=== PATIENT | female | born 1955 | race Caucasian/White ===

== ENCOUNTER → 2016-04-08 | Outpatient (CLI) | payer OTHER ==
--- NOTE | 2016-04-09 10:35 | ECHOF ---
Referral Reason:I25.10 CVD MEASUREMENTS -------- HEIGHT: 152.4 cm WEIGHT: 57.1 kg BP: IVSd: 1.0 cm (0.6 - 1.1) LVIDd: 4.3 cm (3.9 - 5.3) LVPWd: 1.3 cm (0.6 - 1.1) IVSs: 1.4 cm LVIDs: 3.0 cm LVPWs: 1.4 cm LA Diam: 2.9 cm (2.7 - 3.8) LAESV Index (A-L): 34.98 ml/m Ao Diam: 2.7 cm (2.0 - 3.7) AV Cusp: 1.6 cm (1.5 - 2.6) LA Diam: 3.8 cm (2.7 - 3.8) MV EXCURSION: 23.384 mm (> 18.000) MV EF SLOPE: 83 mm/s (70 - 150) EPSS: 0.3 cm MV E Enrique: 0.91 m/s MV DecT: 271 ms MV A Enrique: 0.84 m/s MV E/A Ratio: 1.08 RAP: 5.00 mmHg RVSP: 23.88 mmHg FINDINGS -------- Sinus rhythm. This was a technically adequate study. There is borderline concentric left ventricular hypertrophy. Overall left ventricular systolic function is low-normal with, an EF between 50 - 55 %. The right ventricle is normal in size. LA is moderately dilated 34-39 ml/m2 The right atrial size is normal. There is mild aortic valve sclerosis. There is no evidence of aortic regurgitation. Mild mitral annular calcification present. Mild mitral regurgitation is present. Mild tricuspid regurgitation present. The right ventricular systolic pressure, as measured by Doppler, is 23.88mmHg. There is no pulmonic regurgitation present. The aortic root size is normal. There is no pericardial effusion. CONCLUSIONS -------- 1. There is borderline concentric left ventricular hypertrophy. 2. Overall left ventricular systolic function is low-normal with, an EF between 50 - 55 %. 3. LA is moderately dilated 34-39 ml/m2 4. There is mild aortic valve sclerosis. 5. Mild mitral annular calcification present. 6. Mild mitral regurgitation is present. 7. Mild tricuspid regurgitation present. 8. The right ventricular systolic pressure, as measured by Doppler, is 23.88mmHg. 9. There is no pericardial effusion. ETL DATABASE DEVELOPER: Sabrina Erickson RDCS
== END | disposition home or self-care (01) ==
LOC: RADECHMAIN 14:43
PROVIDERS: ATTEND Family Medicine
DX: I34.0 Nonrheumatic mitral (valve) insufficiency (principal); I07.1 Rheumatic tricuspid insufficiency; I35.8 Other nonrheumatic aortic valve disorders
CPT/HCPCS: 93306

== ENCOUNTER → 2017-02-18 | Outpatient (CLI) | payer OTHER ==
--- NOTE | 2017-02-18 20:02 | MR ---
EXAMINATION TYPE: MR angio head wo con DATE OF EXAM: 02/18/2017 COMPARISON: CT brain dated 02/01/2017 HISTORY: Dizziness, hx head trauma x 4 mos ago, abn CT TECHNIQUE: [id number] imaging was utilized per MRA brain protocol. 3-D imaging of the vasculature was create d for interpretation. FINDINGS: The right vertebral artery is dominant. There is no evidence of intracranial focal stenosis or dissection. The right posterior communicating artery is diminutive although the clark's point of [place] is intact. There is no evidence of intracranial aneurysm. No developmental venous anomaly or arterial venous malformation are identified. Evaluation of the brain parenchyma is suboptimal given technique . No gross evidence of hydrocephalus. IMPRESSION: No evidence of intracranial aneurysm, significant stenosis, occlusion, or dissection of t he intracranial vasculature.
== END | disposition home or self-care (01) ==
LOC: RADMRIMAIN 15:55
PROVIDERS: ATTEND Family Medicine
DX: R94.02 Abnormal brain scan (principal)
CPT/HCPCS: 70544

== ENCOUNTER 2017-08-15 19:28 | Observation (INO) | payer OTHER ==
[2017-08-15] MEDS ORDERED: ASPIRIN 81 MG PO STA (20:03)
[2017-08-15] MEDS ORDERED: NITROGLYCERIN SL TABS 0.4 MG TAB SUBLINGUAL PRN (20:06)
--- NOTE | 2017-08-15 20:11 | ED ---
Chest Pain HPI - General Chief Complaint: Chest Pain Stated Complaint: Chest Pain Time Seen by Provider: 08/15/17 19:41 Source: patient, family Mode of arrival: wheelchair Limitations: no limitations - History of Present Illness Initial Comments: Patient is a 61-year-old female who presents with a chief complaint of sharp and pressure-like substernal chest pain. The patient states that this started a few hours ago. Onset was while she was resting. The patient cannot identify an inciting incident. There are no particular aggravating or alleviating factors. Timing is constant. She admits to shortness of breath, and lightheadedness. Patient has a history of stroke with residual left-sided weakness. Patient has hypertension, she smokes almost one pack per day, and she has a family history of CT. - Related Data Home Medications Medication Instructions Recorded Confirmed ALPRAZolam [Xanax] 0.5 mg PO BID PRN 08/15/17 08/15/17 Atenolol [Tenormin] 25 mg PO BID 08/15/17 08/15/17 Methylphenidate HCl [Ritalin] 20 mg PO TID 08/15/17 08/15/17 Pregabalin [Lyrica] 50 mg PO DAILY 08/15/17 08/15/17 Warfarin Sodium [Coumadin] 5 mg PO DAILY 08/15/17 08/15/17 oxyCODONE-APAP 7.5-325MG [Percocet 1 tab PO TID PRN 08/15/17 08/15/17 7.5-325 mg] Allergies Allergy/AdvReac Type Severity Reaction Status Date / Time No Known Allergies Allergy Verified 08/15/17 20:06 Review of Systems ROS Statement: Those systems with pertinent positive or pertinent negative responses have been documented in the HPI. ROS Other: All systems not noted in ROS Statement are negative. Respiratory: Reports: dyspnea Cardiovascular: Reports: chest pain Past Medical History Past Medical History: CVA/TIA, Hypertension Additional Past Medical History / Comment(s): chronic back pain, skin cancer History of Any Multi-Drug Resistant Organisms: None Reported Past Surgical History: Heart Catheterization With Stent, Pacemaker Additional Past Surgical History / Comment(s): cardiac stent, skin cancer removal Past Psychological History: No Psychological Hx Reported Smoking Status: Current every day smoker Past Alcohol Use History: Occasional Past Drug Use History: Marijuana General Exam Limitations: no limitations General appearance: alert, in no apparent distress Head exam: Present: atraumatic, normocephalic Eye exam: Present: normal appearance ENT exam: Present: normal exam Neck exam: Present: normal inspection Respiratory exam: Present: wheezes, decreased breath sounds. Absent: respiratory distress Cardiovascular Exam: Present: regular rate, normal rhythm GI/Abdominal exam: Present: soft. Absent: distended, tenderness Rectal exam: Present: deferred Extremities exam: Present: normal inspection Back exam: Present: normal inspection Neurological exam: Present: alert, oriented X3 Psychiatric exam: Present: normal affect, normal mood Skin exam: Present: warm, dry, intact Course Vital Signs 08/15/17 08/15/17 19:34 19:55 Temperature 97.6 F Pulse Rate 75 Pulse Rate [ 68 Cardiac Cath Tech ] Respiratory 20 Rate Blood Pressure 158/109 O2 Sat by Pulse 98 Oximetry Chest Pain MDM - MDM The results with chief complaint of chest pain. On initial evaluation, she is hypertensive, otherwise vital signs are stable. Patient is in mild distress secondary to pain. EKG performed at 1942 shows normal sinus rhythm with a rate of 66 bpm. EKG is otherwise unremarkable. Patient given nitroglycerin for pain. She has a history of emphysema, she continues to smoke, lung Evaluation shows decreased breath sounds and mild wheezes. Patient will be given breathing treatments in the emergency department. Prior to troponins, patient is a heart score of 4. patient will be admitted for further cardiac evaluation. 9:46 PM Laboratory evaluation is unremarkable. INR is therapeutic on Coumadin. On reevaluation, patient still states she has chest pain. She was given one nitroglycerin, his will be repeated 2 more times, if patient still having pain she will be given [place]. Vitals remained stable. I discussed this case Dr. Rendon who accepts admission for further cardiac evaluation. Patient agreeable with plan. Disposition Clinical Impression: Chest pain, Moderate risk chest pain Disposition: ADMITTED IP TO THIS [facility] Condition: Good Is patient prescribed a controlled substance at d/c from ED?: No Referrals: Edilberto Rendon MD [Primary Care Provider] - 1-2 days Decision to Admit Reason: Admit from EC - Out of Hospital Transfer - Req. Specs Out of Hospital Transfer - Requested Specifics: Telemetry Unit
[2017-08-15 21:01] LABS: Basophils # (A) 0.1 k/uL (0-0.2); Basophils % (A) 1 %; Eosinophils # (A) 0.5 k/uL (0-0.7); Eosinophils % (A) 5 %; HCT 43.8 % (34.0-46.0); HGB 14.2 gm/dL (11.4-16.0); Lymphocytes # (A) 2.1 k/uL (1.0-4.8); Lymphocytes % (A) 22 %; MCH 28.2 pg (25.0-35.0); MCHC 32.3 g/dL (31.0-37.0); MCV 87.4 fL (80.0-100.0); Mean Platelet Volume 6.9; Monocytes # (A) 0.6 k/uL (0-1.0); Monocytes % (A) 6 %; Neutrophils # (A) 6.1 k/uL (1.3-7.7); Neutrophils % (A) 64 %; Platelet Count 359 k/uL (150-450); RBC 5.01 m/uL (3.80-5.40); RDW 14.1 % (11.5-15.5); WBC 9.6 k/uL (3.8-10.6)
[2017-08-15 21:14] LABS: Anion Gap 8 mmol/L; Blood Urea Nitrogen 27 mg/dL (7-17); Calcium 10.2 mg/dL (8.4-10.2); Carbon Dioxide 29 mmol/L (22-30); Chloride 104 mmol/L (98-107); Glucose 96 mg/dL (74-99); Potassium 5.1 mmol/L (3.5-5.1); Sodium 141 mmol/L (137-145)
[2017-08-15 21:26] LABS: Prothrombin Time 18.2 sec (9.0-12.0)
[2017-08-15] MEDS ORDERED: HYDROcodone/APAP 5-325MG 1 EACH TAB PO PRN (21:43)
[2017-08-15] MEDS ORDERED: NALOXONE 0.4 MG/ML 1 ML VIAL IV PRN (21:43)
[2017-08-15] MEDS ORDERED: ALPRAZolam 0.5 MG TAB PO PRN (21:45)
[2017-08-16 04:51] LABS: Basophils # (A) 0.1 k/uL (0-0.2); Basophils % (A) 1 %; Eosinophils # (A) 0.5 k/uL (0-0.7); Eosinophils % (A) 6 %; HGB 13.1 gm/dL (11.4-16.0); Lymphocytes # (A) 2.5 k/uL (1.0-4.8); Lymphocytes % (A) 27 %; MCH 28.8 pg (25.0-35.0); MCHC 32.7 g/dL (31.0-37.0); MCV 87.9 fL (80.0-100.0); Monocytes # (A) 0.6 k/uL (0-1.0); Monocytes % (A) 7 %; Neutrophils # (A) 5.3 k/uL (1.3-7.7); Neutrophils % (A) 58 %; Platelet Count 299 k/uL (150-450); RBC 4.55 m/uL (3.80-5.40); RDW 14.2 % (11.5-15.5); WBC 9.2 k/uL (3.8-10.6)
[2017-08-16 05:05] LABS: Calcium 9.3 mg/dL (8.4-10.2); Magnesium 1.9 mg/dL (1.6-2.3); Potassium 4.4 mmol/L (3.5-5.1)
[2017-08-16] MEDS ORDERED: ATENOLOL 25 MG TAB PO SCH (09:00)
[2017-08-16] MEDS ORDERED: PREGABALIN 50 MG CAP PO SCH (09:00)
--- NOTE | 2017-08-16 09:16 | HP ---
HISTORY AND PHYSICAL CHIEF COMPLAINT: A 61-year-old white female with a prior history of hypertension, CVA, COPD, developed some anxiety and substernal chest pain, started a few hours ago with no inciting incident. No aggravating or relieving factors. She admits to shortness of breath and lightheadedness. She has a stroke with left-sided weakness, hypertension, pack per day smoking. HOME MEDICATIONS: 1. Tenormin 25 b.i.d. 2. Ritalin 20 t.i.d. 3. Xanax 0.5 b.i.d. 4. Lyrica 50 daily. 5. Coumadin 5 mg daily. 6. Percocet 7.5 t.i.d. REVIEW OF SYSTEMS: Fourteen-point review of systems negative except for mentioned in HPI except for severe anxiety. ALLERGIES: Negative. PAST MEDICAL HISTORY: CVA, TIA, hypertension, chronic back pain, skin cancer. She has heart catheterization with stent and pacemaker. Current everyday smoker. Occasional marijuana. Severe anxiety. PHYSICAL EXAMINATION: A thin, cachectic white female, very anxious. HEAD: Normocephalic, atraumatic. OPHTHALMOLOGIC: Pupils equal, round, react to light and accommodation. NEUROLOGIC: Alert and oriented x3. PSYCH: Fair mood and affect. LUNGS: Show wheezes, decreased breath sounds. GI: Soft, nontender. EXTREMITIES: No cyanosis, clubbing, edema. NEUROLOGIC: Alert and oriented x3. SKIN: Warm, dry, intact. VITAL SIGNS: Blood pressure 158/109, temp 97.6, pulse 60x to 70s, O2 of 98% on room air. EKG sinus rhythm. ASSESSMENT: Chest pain, moderate risk. Will make sure there is a D-dimer done to rule out pulmonary embolism. She is already on Coumadin anyway. Await cardiology recommendations for possible discharge or stress test. Please see further orders. MMODL / IJN: [id number] /
--- NOTE | 2017-08-16 13:51 | XR ---
EXAMINATION TYPE: XR chest 2V DATE OF EXAM: 08/16/2017 COMPARISON: Chest x-ray and CTA chest January 09, 2016. HISTORY: History of emphysema with chest pain. TECHNIQUE: Frontal and lateral views of the chest are obtained. FINDINGS: There is chronic emphysematous change without suspicious new focal air space opacity, pleu ral effusion, or pneumothorax seen. There is patchy left basilar atelectasis. The cardiac silhouette size remains enlarged. The osseous structures are demineralized. IMPRESSION: Chronic emphysematous change and cardiomegaly with new patchy left basilar atelectasis.
--- NOTE | 2017-08-16 13:58 | P.CRDCN ---
History of Present Illness History of present illness: Mrs. Mosher is a pleasant 61-year-old female past medical history significant for CVA, hypertension, COPD and chronic nicotine dependence. She denies history of coronary artery disease and has never seen a c4 planner for any reason. We have been asked to see her in consultation for chest pain. She states the pain is a pressure sensation in the left anterior chest wall in the mid-sternal and precordial region. This started yesterday when she woke up with no specific aggravating factor. She describes associated shortness of breath. She denies dizziness, palpitations, nausea, vomiting or diaphoresis. She continues to feel the discomfort with no alleviating factors. EKG reveals sinus mechanism with no acute ST or T-wave abnormalities. Laboratory data reviewed, hemoglobin 13.1, platelets 299, INR 2.0, d-dimer 0.27 , sodium 144, potassium 4.4, magnesium 1.9, cardiac enzymes negative 3, proBNP 73. Current cardiac medications include Coumadin 5 mg daily and atenolol 25 mg twice a day. She states she takes coumadin since having a stroke. Most recent echocardiogram reveals preserved LV systolic function with EF 50-55% . Review of Systems At the time of my exam: CONSTITUTIONAL: Denies fever. Denies chills. EYES: Denies blurred vision. Denies vision changes. Denies eye pain. EARS, NOSE, MOUTH & THROAT: Denies headache. Denies sore throat. Denies ear pain. CARDIOVASCULAR: Complains of chest pain. Denies shortness of breath. Denies orthopnea. Denies PND. Denies palpitations. RESPIRATORY: Denies cough. GASTROINTESTINAL: Denies abdominal pain. Denies diarrhea. Denies constipation. Denies nausea. Denies vomiting. MUSCULOSKELETAL: Denies myalgias. INTEGUMENTARY: Denies pruitis. Denies rash. NEUROLOGIC: Denies numbness. Denies tingling. Denies weakness. PSYCHIATRIC: Denies anxiety. Denies depression. ENDOCRINE: Denies fatigue. Denies weight change. Denies polydipsia. Denies polyurina. GENITOURINARY: Denies burning, hematuria or urgency with micturation. HEMATOLOGIC: Denies history of anemia. Denies bleeding. Past Medical History Past Medical History: Coronary Artery Disease (CAD), CVA/TIA, Hypertension Additional Past Medical History / Comment(s): CVA with L sided weakness, speech impairment, memory issues, chronic low back pain, arthritis multiple joints, skin cancer with removals, factor 5 Leiden mutation with prior splenic infarct, patent foramen ovale, rheumatic fever. History of Any Multi-Drug Resistant Organisms: None Reported Past Surgical History: Heart Catheterization With Stent Additional Past Surgical History / Comment(s): GERMÁN, cardiac stent, skin cancer removal, colonoscopy Past Anesthesia/Blood Transfusion Reactions: No Reported Reaction Date of Last Stent Placement:: Pt unsure but thinks in 2009 Smoking Status: Current every day smoker - Past Family History Father History Unknown: Yes Mother Family Medical History: Cancer Additional Family Medical History / Comment(s): Mother of cancer-pt does not know what kind. Medications and Allergies Home Medications Medication Instructions Recorded Confirmed Type ALPRAZolam [Xanax] 0.5 mg PO BID PRN 08/15/17 08/15/17 History Atenolol [Tenormin] 25 mg PO BID 08/15/17 08/15/17 History Methylphenidate HCl [Ritalin] 20 mg PO TID 08/15/17 08/15/17 History Pregabalin [Lyrica] 50 mg PO DAILY 08/15/17 08/15/17 History Warfarin Sodium [Coumadin] 5 mg PO DAILY 08/15/17 08/15/17 History oxyCODONE-APAP 7.5-325MG [Percocet 1 tab PO TID PRN 08/15/17 08/15/17 History 7.5-325 mg] Allergies Allergy/AdvReac Type Severity Reaction Status Date / Time No Known Allergies Allergy Verified 08/15/17 20:06 Physical Exam Vitals: Vital Signs Temp Pulse Pulse Pulse Resp BP BP 08/16/17 10:49 98.1 F 60 16 175/111 08/16/17 10:14 98.2 F 66 16 159/82 08/16/17 07:23 97.9 F 60 16 178/89 08/16/17 07:03 96.8 F L 65 18 168/96 08/16/17 04:38 68 18 167/85 08/16/17 00:24 62 16 142/83 08/15/17 23:55 98.6 F 62 16 159/78 08/15/17 21:55 97.6 F 60 18 178/78 06/25/18 19:55 68 08/15/17 19:34 97.6 F 75 20 158/109 Pulse Ox 08/16/17 10:49 95 08/16/17 10:14 95 08/16/17 07:23 95 08/16/17 07:03 96 08/16/17 04:38 96 08/16/17 00:24 98 08/15/17 23:55 98 08/15/17 21:55 98 08/15/17 19:55 08/15/17 19:34 98 Intake and Output 08/15/17 08/16/17 08/16/17 22:59 06:59 14:59 Other: Weight 56.699 kg 56.6 kg Blood pressure 170/87 heart rate 68 afebrile maintaining oxygen saturation on room air GENERAL: This is a 61-year-old female in no apparent distress at the time of my examination. HEENT: Head is atraumatic, normocephalic. Pupils are equal, round. Sclerae anicteric. Conjunctivae are clear. Mucous membranes of the mouth are moist. Neck is supple. There is no jugular venous distention. No carotid bruit is heard. LUNGS: Clear to auscultation no wheezes, rales or rhonchi. No chest wall tenderness is noted on palpation or with deep breathing. HEART: Regular rate and rhythm without murmurs, rubs or gallops. S1 and S2 heard. ABDOMEN: Soft, nontender. Bowel sounds are heard. No organomegaly noted. EXTREMITIES: No evidence of peripheral edema and no calf tenderness noted. VASCULAR: Radial and dorsalis pedis pulses palpated, no evidence of clubbing. NEUROLOGIC: Patient is awake, alert and oriented x3. Results 08/16/17 04:35 08/16/17 04:35 Cardiac Enzymes 08/15/17 08/16/17 08/16/17 Range/Units 20:54 04:35 08:51 Troponin I <0.012 <0.012 <0.012 (0.000-0.034) ng/mL Coagulation 08/15/17 Range/Units 20:54 PT 18.2 H (9.0-12.0) sec CBC 08/15/17 08/16/17 Range/Units 20:54 04:35 WBC 9.6 9.2 (3.8-10.6) k/uL RBC 5.01 4.55 (3.80-5.40) m/uL Hgb 14.2 13.1 (11.4-16.0) gm/dL Hct 43.8 40.0 (34.0-46.0) % Plt Count 359 299 (150-450) k/uL Comprehensive Metabolic Panel 08/15/17 08/16/17 Range/Units 20:54 04:35 Sodium 141 144 (137-145) mmol/L Potassium 5.1 4.4 (3.5-5.1) mmol/L Chloride 104 110 H (98-107) mmol/L Carbon Dioxide 29 25 (22-30) mmol/L BUN 27 H 26 H (7-17) mg/dL Creatinine 0.70 0.87 (0.52-1.04) mg/dL Glucose 96 98 (74-99) mg/dL Calcium 10.2 9.3 (8.4-10.2) mg/dL Current Medications Generic Name Dose Route Start Last Admin Trade Name Freq PRN Reason Stop Dose Admin Hydrocodone Bitart/Acetaminophen 1 each 08/15/17 21:43 08/16/17 10:55 Browns 5-325 PO 1 each Q4HR PRN Administration Moderate Pain Alprazolam 0.5 mg 08/15/17 21:45 Xanax PO BID PRN Anxiety Atenolol 25 mg 08/16/17 09:00 08/16/17 08:23 Tenormin PO 25 mg BID MARZENA Administration Naloxone HCl 0.2 mg 08/15/17 21:43 Narcan IV Q2M PRN Opioid Reversal Nitroglycerin 0.4 mg 08/15/17 20:06 08/15/17 20:58 Nitrostat SUBLINGUAL 08/20/17 20:07 0.4 mg Q5M PRN Administration Chest Pain Pregabalin 50 mg 08/16/17 09:00 08/16/17 08:50 Lyrica PO 50 mg DAILY MARZENA Administration Warfarin Sodium 5 mg 08/16/17 18:00 Coumadin PO DAILY@1800 MARZENA Intake and Output 08/15/17 08/16/17 08/16/17 22:59 06:59 14:59 Other: Weight 56.699 kg 56.6 kg Patient Weight 08/17/17 06:59 Weight 56.6 kg 08/16/17 04:35 08/16/17 04:35 Assessment and Plan Assessment: ASSESSMENT 1. Chest pain, atypical. Acute coronary event has been ruled out with no EKG evidence of ischemia and normal cardiac enzymes. 2. Hypertension, uncontrolled. 3. COPD 4. History of CVA 5. Chronic nicotine dependence PLAN Obtain 2-D echocardiogram and Doppler study to assess cardiac structure and function.] Add amlodipine 5 mg twice a day. Check bilateral carotid duplex. Stress testing can be adjusted as an outpatient once blood pressure has been controlled. Thank you kindly for this consultation. Nurse Practitioner note has been reviewed, I agree with a documented findings and plan of care. Patient was seen and examined.
[2017-08-16] MEDS ORDERED: amLODIPine 5 MG TAB PO SCH (14:00)
--- NOTE | 2017-08-16 15:29 | US ---
EXAMINATION TYPE: US carotid duplex BILAT DATE OF EXAM: 08/16/2017 COMPARISON: US 2009 CLINICAL HISTORY: dizziness. Chest pain, dizziness EXAM MEASUREMENTS: RIGHT: Peak Systolic Velocity (PSV) cm/sec ----- Right CCA: 57.2 ----- Right ICA: 104.1 ----- Right ECA: 84.3 ICA/CCA ratio: 1.8 RIGHT: End Diastole cm/sec ----- Right CCA: 20.6 ----- Right ICA: 35.9 ----- Right ECA: 18.3 LEFT: Peak Systolic Velocity (PSV) cm/sec ----- Left CCA: 78.7 ----- Left ICA: 95.5 ----- Left ECA: 74.3 ICA/CCA ratio: 1.2 LEFT: End Diastole cm/sec ----- Left CCA: 21.5 ----- Left ICA: 28.9 ----- Left ECA: 15.7 VERTEBRALS (direction of flow): Right Vertebral: Antegrade Left Vertebral: Antegrade Rhythm: Normal Grayscale images show no significant focal plaque at carotid bulb level bilaterally. Velocity measure ments and ratios remain within normal limits in visualized portion of both internal carotid arteries. IMPRESSION: No hemodynamically significant stenosis is seen in either internal carotid artery. No sig nificant change from prior.
[2017-08-16] MEDS ORDERED: WARFARIN 5 MG TAB PO SCH (18:00)
[2017-08-16 19:57] VITALS: BP 152/80; PULSE 65; RESP 18; TEMP 98.9
--- NOTE | 2017-08-17 09:55 | ECHOF ---
Referral Reason:cp MEASUREMENTS -------- HEIGHT: 152.4 cm WEIGHT: 56.2 kg BP: RVIDd: 2.2 cm (< 3.3) IVSd: 0.8 cm (0.6 - 1.1) LVIDd: 4.9 cm (3.9 - 5.3) LVPWd: 1.0 cm (0.6 - 1.1) IVSs: 1.3 cm LVIDs: 3.2 cm LVPWs: 1.3 cm LAESV Index (A-L): 30.24 ml/m Ao Diam: 3.0 cm (2.0 - 3.7) AV Cusp: 1.9 cm (1.5 - 2.6) LA Diam: 3.5 cm (2.7 - 3.8) EPSS: 0.4 cm MV E Enrique: 0.93 m/s MV DecT: 288 ms MV A Enrique: 1.12 m/s MV E/A Ratio: 0.83 RAP: 5.00 mmHg RVSP: 40.25 mmHg MV EF SLOPE: 57.56 mm/s (70 - 150) MV EXCURSION: 1.49 cm (> 18.000) FINDINGS -------- Resting bradycardia (HR<60bpm). This was a technically good study. The left ventricular size is normal. Left ventricular wall thickness is normal. Overall left vent ricular systolic function is normal with, an EF between 55 - 60 %. The right ventricle is normal in size and function. LA is midly dilated 29-33ml/m2. The right atrium is normal in size. There is mild aortic valve sclerosis. There is no evidence of aortic regurgitation. There is no e vidence of aortic stenosis. The mitral valve leaflets are mildly thickened. There is trace to mild mitral regurgitation. Mild tricuspid regurgitation present. There is mild pulmonary hypertension. The right ventricular systolic pressure, as measured by Doppler, is 40.25mmHg. Trace/mild (physiologic) pulmonic regurgitation. The aortic root size is normal. Normal inferior vena cava with normal inspiratory collapse consistent with estimated right atrial pre ssure of 5 mmHg. There is no pericardial effusion. CONCLUSIONS -------- 1. Resting bradycardia (HR<60bpm). 2. This was a technically good study. 3. The left ventricular size is normal. 4. Left ventricular wall thickness is normal. 5. Overall left ventricular systolic function is normal with, an EF between 55 - 60 %. 6. LA is midly dilated 29-33ml/m2. 7. There is mild aortic valve sclerosis. 8. The mitral valve leaflets are mildly thickened. 9. There is trace to mild mitral regurgitation. 10. Mild tricuspid regurgitation present. 11. There is mild pulmonary hypertension. 12. The right ventricular systolic pressure, as measured by Doppler, is 40.25mmHg. 13. Trace/mild (physiologic) pulmonic regurgitation. 14. The aortic root size is normal. 15. There is no pericardial effusion. RN WOUND CARE: Ion Buenrostro RDCS
== END 2017-08-16 20:05 | disposition left against medical advice (07) ==
LOC: EC 19:28 → 3OBS 21:43
PROVIDERS: ADMIT Family Medicine; ATTEND Family Medicine
DX: R07.89 Other chest pain (principal); I11.9 Hypertensive heart disease without heart failure; J44.9 Chronic obstructive pulmonary disease, unspecified; I69.354 Hemiplegia and hemiparesis following cerebral infarction affecting left non-dominant side; I69.311 Memory deficit following cerebral infarction; I69.328 Other speech and language deficits following cerebral infarction; F12.90 Cannabis use, unspecified, uncomplicated; F17.210 Nicotine dependence, cigarettes, uncomplicated; M54.5 Low back pain; G89.29 Other chronic pain; F41.9 Anxiety disorder, unspecified; M15.9 Polyosteoarthritis, unspecified; D68.51 Activated protein C resistance; Z95.0 Presence of cardiac pacemaker; Z95.5 Presence of coronary angioplasty implant and graft; Z79.01 Long term (current) use of anticoagulants; Z79.899 Other long term (current) drug therapy; Z85.828 Personal history of other malignant neoplasm of skin; Z80.9 Family history of malignant neoplasm, unspecified; Z82.49 Family history of ischemic heart disease and other diseases of the circulatory system
CPT/HCPCS: 99285 ×2; 36415; 93005; 93306; 85379; 83880; 80048 ×2; 83735 ×2; 84484 ×2; 85025 ×2; 85610; 71046; 93880; G0378 ×2

== ENCOUNTER → 2017-09-23 | Outpatient (CLI) | payer OTHER ==
--- NOTE | 2017-09-23 15:29 | XR ---
EXAMINATION TYPE: XR shoulder complete RT DATE OF EXAM: 09/23/2017 CLINICAL HISTORY: Chronic right shoulder pain. TECHNIQUE: Three views of the right shoulder are obtained. COMPARISON: None. FINDINGS: There is osseous demineralization throughout. There is no acute fracture/dislocation evide nt in the right shoulder. The acromioclavicular and glenohumeral joint spaces demonstrate joint spac e narrowing. Acromioclavicular arthropathy also demonstrates marginal osteophytes and capsular hyper trophy. Small marginal osteophyte is seen of the inferior right humeral head with tiny subchondral cy sts of the footplate of the greater tuberosity. The visualized ribs are intact and unremarkable. IMPRESSION: There is no acute fracture or dislocation in the right shoulder. Moderate acromioclavicu lar arthropathy and mild glenohumeral arthropathy
== END | disposition home or self-care (01) ==
LOC: RADXRMAIN 14:45
PROVIDERS: ATTEND Family Medicine
DX: M19.011 Primary osteoarthritis, right shoulder (principal)

== ENCOUNTER → 2018-12-12 | Outpatient (CLI) | payer OTHER ==
--- NOTE | 2018-12-12 08:40 | US ---
EXAMINATION TYPE: US carotid duplex BILAT DATE OF EXAM: 12/12/2018 COMPARISON: US 08/16/17 CLINICAL HISTORY: G31.84 memory loss. EXAM MEASUREMENTS: RIGHT: Peak Systolic Velocity (PSV) cm/sec ----- Right CCA: 87.9 ----- Right ICA: 108.1 ----- Right ECA: 113.2 ICA/CCA ratio: 1.2 RIGHT: End Diastole cm/sec ----- Right CCA: 41.2 ----- Right ICA: 45.0 ----- Right ECA: 39.9 LEFT: Peak Systolic Velocity (PSV) cm/sec ----- Left CCA: 88.9 ----- Left ICA: 114.8 ----- Left ECA: 99.2 ICA/CCA ratio: 1.3 LEFT: End Diastole cm/sec ----- Left CCA: 38.3 ----- Left ICA: 55.2 ----- Left ECA: 29.3 VERTEBRALS (direction of flow): Right Vertebral: Antegrade Left Vertebral: Antegrade Rhythm: Normal IMPRESSION: Mild degree of grayscale atheromatous plaquing with no sonographically evident hemodynam ically significant stenosis within either visualized carotid arterial system. Criteria for Assigning % of Stenosis / Diameter reduction (Estimation based on the indirect measurements of the internal carotid artery velocities (ICA PSV). 1. Normal (no stenosis)=ICA PSV < 125 cm/s: ratio < 2.0: ICA EDV<40 cm/s. 2. Less than 50% stenosis=ICA PSV < 125 cm/s: ratio < 2.0: ICA EDV<40 cm/s. 3. 50 to 69% stenosis=ICA PSV of 125 to 230 cm/s: ration 2.0 ? 4.0: ICA EDV 40-100 cm/s. 4. Greater than 70% stenosis to near occlusion= ICA PSV > 230 cm/s: ratio > 4.0: ICA EDV > 100 cm/s. 5. Near occlusion= ICA PSV velocities may be low or undetectable: variable ratio and ICA EDV. 6. Total occlusion=unable to detect flow.
--- NOTE | 2018-12-12 09:05 | CT ---
EXAMINATION TYPE: CT brain w con DATE OF EXAM: 12/12/2018 COMPARISON: 02/01/2017 HISTORY: 63-year-old female with Memory loss CT DLP: 1121 mGycm Automated exposure control for dose reduction was used. Technique: CT scan of the head is performed with IV Contrast, patient injected with 100 ml mL of Isov ue 300. Coronal and sagittal reconstructions performed. FINDINGS: There is no abnormal enhancing mass or midline shift identified. Dural venous sinuses are patent. Old encephalomalacia lateral left frontal lobe from prior vascular or traumatic insult. The ventricles a nd sulci are within normal limits in size. The globes are intact. Rightward nasal septal deviation. Mild mucosal thickening left ethmoid air cells. IMPRESSION: Old area of vascular or traumatic insult with encephalomalacia within the left frontal lobe. No enhan cing intracranial lesions.
== END | disposition home or self-care (01) ==
LOC: RADCTMAIN 07:05
PROVIDERS: ATTEND Family Medicine
DX: I65.23 Occlusion and stenosis of bilateral carotid arteries (principal)
CPT/HCPCS: 93880; 70460; Q9967

== ENCOUNTER → 2019-09-11 | Outpatient (CLI) | payer SELFPAY ==
--- NOTE | 2019-09-11 20:43 | MR ---
EXAMINATION TYPE: MR brain wo/w con DATE OF EXAM: 09/11/2019 COMPARISON: CT brain December 12, 2018 HISTORY: Memory loss, CVA per order. Additional symptoms of dizziness per patient. TECHNIQUE: Multiplanar, multisequence images of the brain and brainstem is performed without and with IV contras t, utilizing 6.5 mL intravenous Gadavist . FINDINGS: Diffusion weighted images demonstrate no evidence of a recent infarct or other diffusion ab normality. There is motion artifact degradation. No worrisome extra-axial fluid collection. Mild cody tricular and sulcal prominence. Old infarct posterior inferior left frontal lobe near axial image 21 redemonstrated scattered foci of T2 hyperintensity throughout the white matter with more confluent ap pearance of periventricular level. Findings presumed on the basis of product of chronic small vessel ischemic change in patient of this age. Midline structures demonstrate normal morphology. The craniocervical junction appears within normal limits. Post contrast images demonstrate no abnormal enhancement. The dural venous sinuses appear pa tent. The visualized sinuses are clear and the globes are intact. Nasal septum deviated to right of m idline. IMPRESSION: There is mild diffuse age-related cerebral atrophy with moderate chronic small vessel isc hemic change and old posterior inferior left frontal lobe infarct redemonstrated. No suspicious enhan cement or MRI evidence for a recent infarct.
== END | disposition home or self-care (01) ==
LOC: RADMRIMAIN 16:29
PROVIDERS: ATTEND Family Medicine
DX: I67.82 Cerebral ischemia (principal)
CPT/HCPCS: 70553; A9585

== ENCOUNTER → 2022-05-25 | Outpatient (CLI) | payer MEDICARE ==
--- NOTE | 2022-05-25 14:12 | CTL ---
EXAMINATION TYPE: CT Low Dose Lung DATE OF EXAM ORDERED: 05/25/2022 HISTORY: Z87.891 PERSONAL HISTORY OF NICOTINE DEPENDENCE. Lung cancer screening CT DLP: 63.[address] CTDI: 1.8 mGy Automated exposure control for dose reduction was used. SCREENING VISIT: First screening visit COMPARISON: CTA chest 01/09/2016 TECHNIQUE: Low dose computed tomography scan was performed through the chest at 1 mm thick sections a nd reconstructed images in multiple planes at 1 mm and [address] DIAGNOSTIC QUALITY: Satisfactory FINDINGS: LUNG NODULES: Medial superior segment of the right lower lobe 3 mm pulmonary nodule (series 3, image 117). Anterior right upper lobe 2 mm pulmonary nodule (series 3, image 154). Right upper lobe 3 mm pu lmonary nodule (series 3, image 85). LUNGS: COPD: Severity: Mild Fibrosis: Severity: None Lymph nodes: None Other findings: None RIGHT PLEURAL SPACE: Effusion: None Calcification: None Thickening: None Pneumothorax: None LEFT PLEURAL SPACE: Effusion: None Calcification: None Thickening: None Pneumothorax: None HEART: Heart Size: Normal Coronary Calcification: None Pericardial Effusion: None Other ASD closure device identified. OTHER FINDINGS: Upper abdomen: None Bony thorax: None Supraclavicular region: None Other: None IMPRESSION: 1. Few pulmonary nodules measuring up to [address] 2. Mild COPD changes. CT LUNG RAD AND CT CHEST RECOMMENDATION: Lung-Rad 2 Benign Appearance or Behavior: Continue annual sc reening with LDCT in 12 months. S Modifier (other clinically significant findings): None
== END | disposition home or self-care (01) ==
LOC: RADCTMAIN 13:34
PROVIDERS: ATTEND Family Medicine
DX: Z12.2 Encounter for screening for malignant neoplasm of respiratory organs (principal); J44.9 Chronic obstructive pulmonary disease, unspecified; R91.8 Other nonspecific abnormal finding of lung field; F17.210 Nicotine dependence, cigarettes, uncomplicated
CPT/HCPCS: 71271

== ENCOUNTER 2022-11-20 03:51 | Emergency (ER) | payer MEDICARE ==
[2022-11-20 04:05] VITALS: TEMP 97.9
--- NOTE | 2022-11-20 04:22 | ED ---
Chest Pain HPI - General Chief Complaint: Chest Pain Stated Complaint: wc Time Seen by Provider: 11/20/22 04:16 Source: patient Mode of arrival: ambulatory Limitations: no limitations - History of Present Illness Initial Comments: This patient is 67-year-old woman who presents to have evaluation of chest pain that she states it started early in the afternoon. She does note that it may be worse if she is exerting herself. Pain is otherwise intermittent, aching, without a coming factors. MD Complaint: chest pain Onset/Timin -: hour(s) Onset: during rest Pain Location: substernal Pain Radiation: none Quality: aching Consistency: intermittent Improves With: nothing Worsens With: exertion Treatments Prior to Arrival: none - Related Data Home Medications Medication Instructions Recorded Confirmed ALPRAZolam [Xanax] 0.5 mg PO BID PRN 08/15/17 08/15/17 Methylphenidate HCl [Ritalin] 20 mg PO TID 08/15/17 08/15/17 Pregabalin [Lyrica] 50 mg PO DAILY 08/15/17 08/15/17 Warfarin Sodium [Coumadin] 5 mg PO DAILY 08/15/17 08/15/17 atenoloL [Tenormin] 25 mg PO BID 08/15/17 08/15/17 oxyCODONE-APAP 7.5-325MG [Percocet 1 tab PO TID PRN 08/15/17 08/15/17 7.5-325 mg] Previous Rx's Medication Instructions Recorded Cephalexin [Keflex] 500 mg PO Q6HR #28 cap 11/20/22 Allergies Allergy/AdvReac Type Severity Reaction Status Date / Time No Known Allergies Allergy Verified 08/15/17 20:06 Review of Systems ROS Statement: Those systems with pertinent positive or pertinent negative responses have been documented in the HPI. ROS Other: All systems not noted in ROS Statement are negative. Constitutional: Denies: fever, chills Respiratory: Denies: cough, dyspnea Cardiovascular: Reports: chest pain. Denies: palpitations, edema, syncope Gastrointestinal: Denies: abdominal pain, nausea, vomiting Genitourinary: Denies: dysuria, frequency, hematuria Musculoskeletal: Denies: back pain Skin: Denies: rash Neurological: Denies: headache, weakness EKG Findings - EKG Comments: EKG Findings:: There are Q waves inferiorly however these are present in the comparison ECG from 2018 - EKG Results: EKG: sinus rhythm, normal axis Past Medical History Past Medical History: Coronary Artery Disease (CAD), CVA/TIA, Hypertension Additional Past Medical History / Comment(s): CVA with L sided weakness, speech impairment, memory issues, chronic low back pain, arthritis multiple joints, skin cancer with removals, factor 5 Leiden mutation with prior splenic infarct, patent foramen ovale, rheumatic fever. History of Any Multi-Drug Resistant Organisms: None Reported Past Surgical History: Heart Catheterization With Stent Additional Past Surgical History / Comment(s): GERMÁN, cardiac stent, skin cancer removal, colonoscopy Past Anesthesia/Blood Transfusion Reactions: No Reported Reaction Date of Last Stent Placement:: Pt unsure but thinks in 2009 Past Psychological History: No Psychological Hx Reported Smoking Status: Current every day smoker Past Alcohol Use History: Occasional Past Drug Use History: Marijuana - Past Family History Father History Unknown: Yes Mother Family Medical History: Cancer Additional Family Medical History / Comment(s): Mother of cancer-pt does not know what kind. General Exam Limitations: no limitations General appearance: alert, in no apparent distress Head exam: Present: atraumatic, normocephalic Eye exam: Present: normal appearance. Absent: scleral icterus, conjunctival injection Neck exam: Present: normal inspection Respiratory exam: Present: normal lung sounds bilaterally. Absent: respiratory distress, wheezes, rales, rhonchi, stridor, accessory muscle use Cardiovascular Exam: Present: regular rate, normal rhythm, normal heart sounds. Absent: systolic murmur, diastolic murmur, rubs, gallop GI/Abdominal exam: Present: soft. Absent: distended, tenderness, guarding, rebound, rigid, mass Extremities exam: Present: normal inspection, normal capillary refill. Absent: pedal edema, calf tenderness Back exam: Present: normal inspection. Absent: CVA tenderness (R), CVA tenderness (L) Neurological exam: Present: alert Skin exam: Present: warm, dry, intact, normal color. Absent: rash Course Vital Signs 11/20/22 11/20/22 11/20/22 03:55 05:00 06:00 Temperature 97.9 F Pulse Rate 90 81 74 Respiratory 18 20 18 Rate Blood Pressure 156/94 159/97 142/101 O2 Sat by Pulse 98 96 98 Oximetry Chest Pain MDM - MDM This patient is 67-year-old woman here to have evaluation for chest pain that does have an exertional component. The initial workup negative, did recommend that she have serial cardiac enzymes and telemetry monitoring but at this point the patient refuses to stay. She understands there is risk associated. The patient had a chest x-ray which I interpreted as negative for acute infiltr ate, pneumothorax, congestive heart failure Was pt. sent in by a medical professional or institution (, [facility], [employer] T[employer], urgent care, hospital, or longterm...) When possible be specific @ -[No] Did you speak to anyone other than the patient for history (EMS, parent, family, police, friend...)? What history was obtained from this source @ -[No] Did you review nursing and triage notes (agree or disagree)? Why? @ -[I reviewed and agree with nursing and triage notes] Were old charts reviewed (outside hosp., previous admission, EMS record, old EKG, old radiological studies, urgent care reports/EKG's, longterm records)? Report findings @ -[No old charts were reviewed] Differential Diagnosis (chest pain, altered mental status, abdominal pain women, abdominal pain men, vaginal bleeding, weakness, fever, dyspnea, syncope, headache, dizziness, GI bleed, back pain, seizure, CVA, palpatations, mental health, musculoskeletal)? @ -[Differential Chest Pain: Stable Angina, Unstable Angina, STEMI, NSTEMI Aortic Dissection, Pneumothorax, Musculoskeletal, Esophageal Spasm GERD, Cholecystitis, Pancreatitis, Zoster, this is not meant to be an all-inclusive list. EKG interpreted by me (3pts min.). @ -[I interpreted As above] X-rays interpreted by me (1pt min.). @ -[I Interpreted as above CT interpreted by me (1pt min.). @ -[None done] U/S interpreted by me (1pt. min.). @ -[None done] What testing was considered but not performed or refused? (CT, X-rays, U/S, labs)? Why? @ -[None] What meds were considered but not given or refused? Why? @ -[None] Did you discuss the management of the patient with other professionals (professionals i.e. , [facility], [employer] B[employer] TENDER, lab, RT, psych nurse, social work case manager, welder and fitter, teacher, labor relations officer, social work case manager)? Give summary @ -[No] Was smoking cessation discussed for >3mins.? @ -[No] Was critical care preformed (if so, how long)? @ -[No] Were there social determinants of health that impacted care today? How? (Homelessness, low income, unemployed, alcoholism, drug addiction, transportation, low edu. Level, literacy, decrease access to med. care, custodial, rehab)? @ -[No] Was there de-escalation of care discussed even if they declined (Discuss DNR or withdrawal of care, Hospice)? DNR status @ -[No] What co-morbidities impacted this encounter? (DM, HTN, Smoking, COPD, CAD, Cancer, CVA, ARF, Chemo, Hep., AIDS, mental health diagnosis, sleep apnea, morbid obesity)? @ -[None] Was patient admitted / discharged? Hospital course, mention meds given and route, prescriptions, significant lab abnormalities, going to OR and other pertinent info. @ -[The patient signed to leave AGAINST MEDICAL ADVICE, see above Undiagnosed new problem with uncertain prognosis? @ -[No] Drug Therapy requiring intensive monitoring for toxicity (Heparin, Nitro, Insulin, Cardizem)? @ -[No] Were any procedures done? @ -[No] Diagnosis/symptom? @ -[Acute chest pain Acute, or Chronic, or Acute on Chronic? @ -[default] Uncomplicated (without systemic symptoms) or Complicated (systemic symptoms)? @ -[Uncomplicated Side effects of treatment? @ -[No] Exacerbation, Progression, or Severe Exacerbation? @ -[No] Poses a threat to life or bodily function? How? (Chest pain, [place], [place], pneumonia, PE, COPD, DKA, ARF, appy, cholecystitis, CVA, Diverticulitis, Homicidal, Suicidal, threat to staff... and all critical care pts) @ -[Yes, chest pain of cardiac etiology may progress to HI/ Disposition Clinical Impression: Chest pain Disposition: LEFT AGAINST MEDICAL ADVICE Condition: Undetermined Instructions (If sedation given, give patient instructions): Chest Pain (ED) Prescriptions: Cephalexin [Keflex] 500 mg PO Q6HR #28 cap Is patient prescribed a controlled substance at d/c from ED?: No Referrals: Edilberto Rendon MD [Primary Care Provider] - 1-2 days
[2022-11-20] MEDS ORDERED: MORPHINE SULFATE 4 MG/ML SYRINGE IV STA (04:34)
[2022-11-20] MEDS ORDERED: NITROGLYCERIN SL TABS 0.4 MG TAB SUBLINGUAL STA (04:34)
[2022-11-20] MEDS ORDERED: ASPIRIN 81 MG PO STA (04:34)
[2022-11-20 04:35] LABS: Basophils # (A) 0.1 k/uL (0-0.2); Basophils % (A) 1 %; Eosinophils # (A) 0.7 k/uL (0-0.7); Eosinophils % (A) 6 %; HCT 38.7 % (34.0-46.0); HGB 13.1 gm/dL (11.4-16.0); Lymphocytes # (A) 2.2 k/uL (1.0-4.8); Lymphocytes % (A) 20 %; MCH 30.3 pg (25.0-35.0); MCHC 33.8 g/dL (31.0-37.0); MCV 89.8 fL (80.0-100.0); Mean Platelet Volume 8.1; Monocytes # (A) 0.8 k/uL (0-1.0); Monocytes % (A) 7 %; Neutrophils # (A) 7.4 k/uL (1.3-7.7); Neutrophils % (A) 65 %; Platelet Count 366 k/uL (150-450); RBC 4.31 m/uL (3.80-5.40); RDW 12.7 % (11.5-15.5); WBC 11.4 k/uL (3.8-10.6)
[2022-11-20 05:03] LABS: ALT 15 U/L (4-34); African American GFR (CKD) 49 (>60 ml/min/1.73 sqM); Anion Gap 12 mmol/L; Blood Urea Nitrogen 28 mg/dL (7-17); Calcium 9.7 mg/dL (8.4-10.2); Carbon Dioxide 19 mmol/L (22-30); Chloride 107 mmol/L (98-107); Glucose 121 mg/dL (74-99); Non-African American GFR(CKD) 42 (>60 ml/min/1.73 sqM); Sodium 138 mmol/L (137-145); Total Bilirubin 1.1 mg/dL (0.2-1.3)
[2022-11-20 05:06] LABS: INR 0.9 (<1.2); Prothrombin Time 9.7 sec (9.0-12.0)
[2022-11-20 05:12] LABS: AST 39 U/L (14-36); Albumin 4.2 g/dL (3.5-5.0); Alkaline Phosphatase 60 U/L (38-126); Potassium 4.8 mmol/L (3.5-5.1); Total Protein 7.4 g/dL (6.3-8.2)
[2022-11-20 06:23] VITALS: BP 142/101; PULSE 74; RESP 18
--- NOTE | 2022-11-20 06:33 | XR ---
EXAMINATION TYPE: XR chest 2V DATE OF EXAM: 11/20/2022 COMPARISON: 08/16/2017 HISTORY: Chest pain TECHNIQUE: Frontal and lateral views of the chest are obtained. FINDINGS: The heart, pulmonary vasculature, mediastinum and hilum are normal. There is mild prominence of the i nterstitium which was seen previously and most likely represents mild chronic interstitial change. Th ere is no airspace opacity in the lungs are clear. The osseous structures are intact. IMPRESSION: Possibly stable mild chronic interstitial changes with no acute cardiopulmonary disease.
== END 2022-11-20 06:47 | disposition left against medical advice (07) ==
LOC: EC 03:51
DX: R07.89 Other chest pain (principal); I25.10 Atherosclerotic heart disease of native coronary artery without angina pectoris; I10 Essential (primary) hypertension; F17.200 Nicotine dependence, unspecified, uncomplicated; F12.90 Cannabis use, unspecified, uncomplicated; Z79.01 Long term (current) use of anticoagulants; Z79.899 Other long term (current) drug therapy; Z86.73 Personal history of transient ischemic attack (TIA), and cerebral infarction without residual deficits; Z95.5 Presence of coronary angioplasty implant and graft; Z53.29 Procedure and treatment not carried out because of patient's decision for other reasons
CPT/HCPCS: 36415; 93005; 80053; 83735; 84484; 85025; 85610; 85730; 71046; 99285; 96365; J0690

== ENCOUNTER 2023-03-15 23:27 | Emergency (ER) | payer MEDICARE, OTHER ==
[2023-03-15 23:44] VITALS: TEMP 97.9
[2023-03-15] MEDS ORDERED: MORPHINE SULFATE 4 MG/ML SYRINGE IM STA (23:57)
--- NOTE | 2023-03-16 00:14 | ED ---
General Adult HPI - General Chief complaint: Skin/Abscess/Foreign Body Stated complaint: RT pinky pain Time Seen by Provider: 03/15/23 23:47 Source: patient Mode of arrival: ambulatory Limitations: no limitations - History of Present Illness Initial comments: 67-year-old female presenting to the ED with a chief complaint of right pinky pain. This has been an ongoing issue for the past several months. Patient previously seen here on 12/06/2022. Reportedly had incision and drainage performed by her PCP and was placed on antibiotics however despite that still has had redness and pain of this digit. At that time had an x-ray that revealed no evidence of osteomyelitis. Reports since then it has been intermittently been getting better and getting worse and despite multiple rounds of antibiotics has still not gone away. States recently has started hurting more than usual prompting presentation to the ED for further evaluation. Denies fever or chills. No other complaints. - Related Data Home Medications Medication Instructions Recorded Confirmed ALPRAZolam [Xanax] 0.5 mg PO BID PRN 08/15/17 08/15/17 Methylphenidate HCl [Ritalin] 20 mg PO TID 08/15/17 08/15/17 Pregabalin [Lyrica] 50 mg PO DAILY 08/15/17 08/15/17 Warfarin Sodium [Coumadin] 5 mg PO DAILY 08/15/17 08/15/17 atenoloL [Tenormin] 25 mg PO BID 08/15/17 08/15/17 oxyCODONE-APAP 7.5-325MG [Percocet 1 tab PO TID PRN 08/15/17 08/15/17 7.5-325 mg] Previous Rx's Medication Instructions Recorded Cephalexin [Keflex] 500 mg PO Q6HR #28 cap 11/20/22 Sulfamethox-Tmp 800-160Mg [Bactrim 1 tab PO Q12HR 7 Days #14 tab 12/06/22 DS 800-160 mg] Cephalexin [Keflex] 500 mg PO Q6HR 7 Days #28 cap 03/16/23 Sulfamethox-Tmp 800-160Mg [Bactrim 1 each PO Q12HR 7 Days #14 tab 03/16/23 Ds] Allergies Allergy/AdvReac Type Severity Reaction Status Date / Time No Known Allergies Allergy Verified 03/15/23 23:37 Review of Systems ROS Statement: Those systems with pertinent positive or pertinent negative responses have been documented in the HPI. ROS Other: All systems not noted in ROS Statement are negative. Past Medical History Past Medical History: Coronary Artery Disease (CAD), CVA/TIA, Hypertension Additional Past Medical History / Comment(s): CVA with L sided weakness, speech impairment, memory issues, chronic low back pain, arthritis multiple joints, skin cancer with removals, factor 5 Leiden mutation with prior splenic infarct, patent foramen ovale, rheumatic fever. History of Any Multi-Drug Resistant Organisms: None Reported Past Surgical History: Heart Catheterization With Stent Additional Past Surgical History / Comment(s): GERMÁN, cardiac stent, skin cancer removal, colonoscopy Past Anesthesia/Blood Transfusion Reactions: No Reported Reaction Date of Last Stent Placement:: Pt unsure but thinks in 2009 Past Psychological History: No Psychological Hx Reported Smoking Status: Current every day smoker Past Alcohol Use History: None Reported Past Drug Use History: Marijuana - Past Family History Father History Unknown: Yes Mother Family Medical History: Cancer Additional Family Medical History / Comment(s): Mother of cancer-pt does not know what kind. General Exam Limitations: no limitations General appearance: alert, in no apparent distress Eye exam: Present: normal appearance ENT exam: Present: normal exam Neck exam: Present: normal inspection Respiratory exam: Present: normal lung sounds bilaterally Cardiovascular Exam: Present: regular rate, normal rhythm GI/Abdominal exam: Present: soft Extremities exam: Present: other (Right fifth digit does show some warmth, erythema, tenderness to palpation distal to the DIP joint. Erythema does appear circumferential however patient is able to actively flex and extend all fingers without any difficulties. Able to passively extend the finger without pain. ) Neurological exam: Present: alert, oriented X3 Skin exam: Present: warm, dry Course Vital Signs 03/15/23 03/16/23 23:35 01:43 Temperature 97.9 F Pulse Rate 83 77 Respiratory 16 18 Rate Blood Pressure 164/83 138/91 O2 Sat by Pulse 95 96 Oximetry Procedures - Incision & Drainage Site: hand Anesthetic Used: lidocaine 1%, without epi Amount (mLs): 2 I&D Cleaning Method: Chloroprep Sterile Field Used?: Yes Scalpel Used: #15 Patient Tolerated Procedure: well, no complications Medical Decision Making - Medical Decision Making Was pt. sent in by a medical professional or institution (Dr., PA, BAND STRAIGHTENER, urgent care, hospital, or alf...) When possible be specific @ -No Did you speak to anyone other than the patient for history (EMS, parent, family, police, friend...)? What history was obtained from this source @ -No Did you review nursing and triage notes (agree or disagree)? Why? @ -I reviewed and agree with nursing and triage notes Were old charts reviewed (outside hosp., previous admission, EMS record, old EKG, old radiological studies, urgent care reports/EKG's, alf records)? Report findings @ -Prior visit reviewed. For further details please see HPI. Differential Diagnosis (chest pain, altered mental status, abdominal pain women, abdominal pain men, vaginal bleeding, weakness, fever, dyspnea, syncope, headache, dizziness, GI bleed, back pain, seizure, CVA, palpatations, mental health, musculoskeletal)? @ -Osteomyelitis, flexor tenosynovitis, cellulitis. This is meant to be an all-inclusive list. EKG interpreted by me (3pts min.). @ -As above X-rays interpreted by me (1pt min.). @ -X-ray of the hand interpreted by me showing no evidence of osteomyelitis. CT interpreted by me (1pt min.). @ -None done U/S interpreted by me (1pt. min.). @ -None done What testing was considered but not performed or refused? (CT, X-rays, U/S, labs)? Why? @ -None What meds were considered but not given or refused? Why? @ -None Did you discuss the management of the patient with other professionals (professionals i.e. G[facility]RETT Recinos, BAND STRAIGHTENER, lab, RT, psych nurse, public health social worker, automobile locator, teacher, media liaison officer, hospice case manager)? Give summary @ -No Was smoking cessation discussed for >3mins.? @ -No Was critical care preformed (if so, how long)? @ -No Were there social determinants of health that impacted care today? How? (Homelessness, low income, unemployed, alcoholism, drug addiction, transportation, low edu. Level, literacy, decrease access to med. care, usp, rehab)? @ -No Was there de-escalation of care discussed even if they declined (Discuss DNR or withdrawal of care, Hospice)? DNR status @ -No What co-morbidities impacted this encounter? (DM, HTN, Smoking, COPD, CAD, Cancer, CVA, ARF, Chemo, Hep., AIDS, mental health diagnosis, sleep apnea, morbid obesity)? @ -None Was patient admitted / discharged? Hospital course, mention meds given and route, prescriptions, significant lab abnormalities, going to OR and other pertinent info. @ -Discharge 67-year-old female presents to the ED with complaint of right fifth finger infection. Patient has had ongoing infection of her right fifth finger since November. Despite going through multiple rounds of antibiotics reports intermittent worsening of this prompted presentation to the ED today for further evaluation. X-ray of the finger did not show any evidence of osteomyelitis. Incision and drainage performed. Patient provided prescription for Keflex and Bactrim. Advise close follow-up with orthopedics. Provided referral to see Dr. Slaughter. Discharged home in stable condition. Discussed strict return precautions with patient who verbalized agreement. Undiagnosed new problem with uncertain prognosis? @ -No Drug Therapy requiring intensive monitoring for toxicity (Heparin, Nitro, Insulin, Cardizem)? @ -No Were any procedures done? @ -No Diagnosis/symptom? @ -Felon, right fifth finger Acute, or Chronic, or Acute on Chronic? @ -Acute Uncomplicated (without systemic symptoms) or Complicated (systemic symptoms)? @ -Uncomplicated Side effects of treatment? @ -No Exacerbation, Progression, or Severe Exacerbation? @ -No Poses a threat to life or bodily function? How? (Chest pain, [place], [place], pneumonia, PE, COPD, DKA, ARF, appy, cholecystitis, CVA, Diverticulitis, Homicidal, Suicidal, threat to staff... and all critical care pts) @ -No Disposition Clinical Impression: Felon of digit Disposition: HOME SELF-CARE Condition: Good Instructions (If sedation given, give patient instructions): Abscess Incision and Drainage (ED) Additional Instructions: Please return to the Emergency Department if symptoms worsen or any other concerns. Please follow-up with orthopedics. Monitor for signs of worsening infection. Prescriptions: Sulfamethox-Tmp 800-160Mg [Bactrim Ds] 1 each PO Q12HR 7 Days #14 tab Cephalexin [Keflex] 500 mg PO Q6HR 7 Days #28 cap Is patient prescribed a controlled substance at d/c from ED?: No Referrals: Edilberto Rendon MD [Primary Care Provider] - 1-2 days Diana Slaughter DO [Doctor of Osteopathic Medicine] - 1-2 days Time of Disposition: 03:16
--- NOTE | 2023-03-16 00:50 | XR ---
EXAM: XR Right Hand Complete, 3 or More Views CLINICAL HISTORY: XR Reason: swelling to pinky TECHNIQUE: Frontal, lateral and oblique views of the right hand. COMPARISON: No relevant prior studies available. FINDINGS: Bones/joints: Small osteophyte versus 1 mm chip fracture involving the dorsal lateral cortex of the fifth digit distal phalanx at the distal interphalangeal joint. Mild narrowing and osteophytosis of the radiocarpal joint. The phalanges, metacarpal, carpal bones are otherwise intact and normally aligned. Soft tissues: Unremarkable. No radiopaque foreign body. IMPRESSION: Small osteophyte versus 1 mm chip fracture involving the dorsal lateral cortex of the fifth digit distal phalanx at the distal interphalangeal joint.
[2023-03-16] MEDS ORDERED: MORPHINE SULFATE 4 MG/ML SYRINGE IM STA (01:29)
[2023-03-16] MEDS ORDERED: LIDOCAINE 1% INJ 10MG/ML (20 ML MDV) SQ ONE (01:29)
[2023-03-16 02:00] VITALS: BP 138/91; PULSE 77; RESP 18
[2023-03-16] MEDS ORDERED: CEPHALEXIN 500 MG CAP PO STA (03:21)
[2023-03-16] MEDS ORDERED: SULFAMETHOX-TMP 800-160MG 1 EACH TAB PO STA (03:21)
== END 2023-03-16 03:29 | disposition home or self-care (01) ==
LOC: EC 23:27
DX: L03.011 Cellulitis of right finger (principal); I10 Essential (primary) hypertension; I25.10 Atherosclerotic heart disease of native coronary artery without angina pectoris; F12.90 Cannabis use, unspecified, uncomplicated; F17.200 Nicotine dependence, unspecified, uncomplicated; Z79.899 Other long term (current) drug therapy
CPT/HCPCS: 73130; 99284; 96372 ×2; 20610; J2270; J2001; 26010

== ENCOUNTER 2023-03-25 12:16 | Emergency (ER) | payer MEDICARE ==
[2023-03-25] MEDS ORDERED: KETOROLAC 15 MG/ML 1 ML VIAL IM STA (12:38)
[2023-03-25] MEDS ORDERED: MORPHINE SULFATE 4 MG/ML SYRINGE IM STA (12:38)
--- NOTE | 2023-03-25 12:49 | ED ---
Extremity Problem HPI - General Chief complaint: Extremity Injury, Upper Stated complaint: Post op pain- finger Time Seen by Provider: 03/25/23 12:30 Source: patient, RN notes reviewed Mode of arrival: ambulatory Limitations: no limitations - History of Present Illness Initial comments: This is a 67-year-old female who presents to the emergency department for pain to the right pinky finger. States that she's had ongoing problems with pain to this area for several months and no definitive cause has been identified. She followed up with Dr. Slaughter, orthopedics, and had a biopsy on 03/23/23. She was given about 5 tablets of tramadol, and states that this was not very effective and she continues to be in severe pain. She is also on [place] 10mg TID. Not taking any antiinflammatories with this. Pain is not any worse following the biopsy. She has not gotten the results of the biopsy yet. Her follow up appointment with Dr. Slaughter is on 04/04/23. States that she is hoping for help with pain control. MD Complaint: extremity pain - Related Data Home Medications Medication Instructions Recorded Confirmed ALPRAZolam [Xanax] 0.5 mg PO BID PRN 08/15/17 08/15/17 Methylphenidate HCl [Ritalin] 20 mg PO TID 08/15/17 08/15/17 Pregabalin [Lyrica] 50 mg PO DAILY 08/15/17 08/15/17 Warfarin Sodium [Coumadin] 5 mg PO DAILY 08/15/17 08/15/17 atenoloL [Tenormin] 25 mg PO BID 08/15/17 08/15/17 oxyCODONE-APAP 7.5-325MG [Percocet 1 tab PO TID PRN 08/15/17 08/15/17 7.5-325 mg] Previous Rx's Medication Instructions Recorded Cephalexin [Keflex] 500 mg PO Q6HR #28 cap 11/20/22 Sulfamethox-Tmp 800-160Mg [Bactrim 1 tab PO Q12HR 7 Days #14 tab 12/06/22 DS 800-160 mg] Cephalexin [Keflex] 500 mg PO Q6HR 7 Days #28 cap 03/16/23 Sulfamethox-Tmp 800-160Mg [Bactrim 1 each PO Q12HR 7 Days #14 tab 03/16/23 Ds] Naproxen Sodium 550 mg PO BID PRN #30 tablet 03/25/23 Allergies Allergy/AdvReac Type Severity Reaction Status Date / Time No Known Allergies Allergy Verified 03/25/23 12:28 Review of Systems ROS Statement: Those systems with pertinent positive or pertinent negative responses have been documented in the HPI. ROS Other: All systems not noted in ROS Statement are negative. Past Medical History Past Medical History: Coronary Artery Disease (CAD), CVA/TIA, Hypertension Additional Past Medical History / Comment(s): CVA with L sided weakness, speech impairment, memory issues, chronic low back pain, arthritis multiple joints, skin cancer with removals, factor 5 Leiden mutation with prior splenic infarct, patent foramen ovale, rheumatic fever. History of Any Multi-Drug Resistant Organisms: None Reported Past Surgical History: Heart Catheterization With Stent Additional Past Surgical History / Comment(s): GERMÁN, cardiac stent, skin cancer removal, colonoscopy Past Anesthesia/Blood Transfusion Reactions: No Reported Reaction Date of Last Stent Placement:: Pt unsure but thinks in 2009 Past Psychological History: No Psychological Hx Reported Smoking Status: Current every day smoker Past Alcohol Use History: None Reported Past Drug Use History: Marijuana - Past Family History Father History Unknown: Yes Mother Family Medical History: Cancer Additional Family Medical History / Comment(s): Mother of cancer-pt does not know what kind. General Exam Limitations: no limitations General appearance: alert, in distress Head exam: Present: atraumatic, normocephalic, normal inspection Respiratory exam: Present: normal lung sounds bilaterally. Absent: respiratory distress, wheezes, rales, rhonchi, stridor Cardiovascular Exam: Present: regular rate, normal rhythm, normal heart sounds. Absent: systolic murmur, diastolic murmur, rubs, gallop, clicks Extremities exam: Present: other (The right pinky finger is bandaged following biopsy. Patient refused bandage removal. There is no obvious swelling or erythema extending from the site.) Neurological exam: Present: alert, oriented X3, CN II-XII intact Psychiatric exam: Present: normal affect, normal mood Course Vital Signs 03/25/23 03/25/23 03/25/23 12:25 13:38 15:07 Temperature 98.6 F 98.1 F 98.1 F Pulse Rate 76 76 70 Respiratory 18 18 18 Rate Blood Pressure 145/83 160/91 141/89 O2 Sat by Pulse 99 97 98 Oximetry Medical Decision Making - Medical Decision Making This is a 67-year-old female who presents to the emergency department for pain to the right pinky finger. Was pt. sent in by a medical professional or institution? @ -No Did you speak to anyone other than the patient for history? @ -No Did you review nursing and triage notes? @ -I disagree with the aspect about pain being increased following the biopsy. The pain is chronic and stable. Were old charts reviewed? @ -No Differential Diagnosis? @ -Differential Musculoskeletal: Muscular strain, contusion, ligament sprain, fracture, arthritis, septic arthritis, bursitis, cellulitis, muscle spasm, nerve compression, DVT, arterial occlusion, herpes zoster, electrolyte abnormality, tumor.... This is not meant to be in all inclusive list EKG interpreted by me (3pts min.)? @ -Not obtained X-rays interpreted by me (1pt min.)? @ -Not obtained CT interpreted by me (1pt min.)? @ -Not obtained U/S interpreted by me (1pt. min.)? @ -Not obtained What testing was considered but not performed? (CT, X-rays, U/S, labs)? Why? @ -None What meds were considered but not given? Why? @ -None Did you discuss the management of the patient with other professionals? @ -No Did you reconcile home meds? @ -No Was smoking cessation discussed for >3mins.? @ -I discussed smoking cessation for greater than 3 minutes. The risk of smoking were discussed with the patient including but not limited to risks of cancer, stroke, coronary artery disease and COPD. Also discussed with patient were multiple methods of quitting smoking. Lastly we discussed the financial cost of smoking. Was critical care preformed (if so, how long)? @ -No Were there social determinants of health that impacted care today? How? (Homelessness, low income, unemployed, alcoholism, drug addiction, transportat ion, low edu. Level, literacy, decrease access to med. care, shelter, rehab)? @ -No Was there de-escalation of care discussed even if they declined? (Discuss DNR or withdrawal of care, Hospice)? @ -No What co-morbidities impacted this encounter? (DM, HTN, Smoking, COPD, CAD, Cancer, CVA, Hep., AIDS, mental health diagnosis, sleep apnea, morbid obesity)? @ -Smoking Was patient admitted / discharged? @ -Discharged. The finger was bandaged following the biopsy. Patient refused to have the bandage removed, and I advised that I cannot fully evaluate it in that state. Patient expresses understanding and still opted to avoid bandage removal. There was no swelling or erythema extending from the bandage site to suggest signs of infection. Patient also states that pain is not increased following the biopsy. Patient initially states that she is not taking anything for pain control, however I reviewed her MAPS and she is prescribed [place] 10mg TID. When this was discussed with the patient, she does admit to taking the [place], but states that it is not effective. She's not taking any anti- inflammatories at this time. Prescription for naproxen provided with dosing instructions reviewed for additional symptom management. Her pain was well controlled in the emergency department and she was discharged home in stable condition. Advised she contact the orthopedic office regarding her pain to see if they would like to schedule her for a sooner follow-up appointment. Undiagnosed new problem with uncertain prognosis? @ -None Drug Therapy requiring intensive monitoring for toxicity (Heparin, Nitro, Insul in, Cardizem)? @ -None Were any procedures done? @ -None Diagnosis/symptom? @ -Finger pain Acute, or Chronic, or Acute on Chronic? @ -Chronic Uncomplicated (without systemic symptoms) or Complicated (systemic symptoms)? @ -Uncomplicated Side effects of treatment? @ -None Exacerbation, Progression, or Severe Exacerbation] @ -Stable Poses a threat to life or bodily function? @ -No Return precautions reviewed in depth, the patient is instructed to return to the emergency department with any new, worsening, or concerning symptoms. Patient verbalized understanding. This case was discussed in detail with the attending ED physician, Dr. Garza. Presentation, findings, and treatment plan discussed in detail as well. Disposition Clinical Impression: Finger pain, right, Nicotine dependence Disposition: HOME SELF-CARE Instructions (If sedation given, give patient instructions): Arthralgia (ED) Additional Instructions: Return to the emergency department with any new, worsening, or concerning symptoms. You can try taking the naproxen twice daily for pain relief. If you choose to take this, do not take any other anti-inflammatories such as ibuprofen, take one or the other. Follow up with your primary care provider in 1-[address] Slaughter. Prescriptions: Naproxen Sodium 550 mg PO BID PRN #30 tablet PRN Reason: Pain Is patient prescribed a controlled substance at d/c from ED?: No Referrals: Edilberto Rendon MD [Primary Care Provider] - 1-2 days Time of Disposition: 14:49
[2023-03-25 13:10] VITALS: RESP 18
[2023-03-25] MEDS ORDERED: HYDROmorphone 1 MG/ML 1 ML SYRINGE IVP STA (13:24)
[2023-03-25] MEDS ORDERED: HYDROmorphone 1 MG/ML 1 ML SYRINGE IM STA (13:27)
[2023-03-25 14:09] VITALS: TEMP 98.1
[2023-03-25] MEDS ORDERED: HYDROmorphone 0.5 MG/0.5 ML SYRINGE IM STA (14:49)
[2023-03-25 15:36] VITALS: BP 141/89; PULSE 70
== END 2023-03-25 15:09 | disposition home or self-care (01) ==
LOC: EC 12:16
DX: M79.644 Pain in right finger(s) (principal); F17.200 Nicotine dependence, unspecified, uncomplicated; I25.10 Atherosclerotic heart disease of native coronary artery without angina pectoris; I10 Essential (primary) hypertension; F12.90 Cannabis use, unspecified, uncomplicated; Z79.899 Other long term (current) drug therapy; Z79.02 Long term (current) use of antithrombotics/antiplatelets
CPT/HCPCS: 99283 ×2; 99406 ×2; 96374; 96372 ×4; J2270; J1170; J1885